=== PATIENT | female | born 1930 | race Caucasian/White ===

== ENCOUNTER 2017-06-24 11:21 | Inpatient (IN) | payer MEDICARE, OTHER ==
--- NOTE | ~2017-06-24 | CN ---
PATIENT NAME:MARCI ALVARENGA MEDICAL RECORD: [id number] : [birth year] LOCATION:D.M2 D.2117 ADMIT DATE: 06/24/17 ACCOUNT: [id number] CONSULTING PHYSICIAN: ROLAND BEAULIEU MD REFERRING PHYSICIAN: KENNETH MARTINEZ MD DATE OF CONSULTATION: 06/24/2017 Cardiology Consult DATE OF SERVICE: 06/24/2017 ADMITTING DIAGNOSES: 1. New onset atrial fibrillation, unknown duration. 2. Cardiomyopathy, ejection fraction 35%. 3. Hypertension. 4. Hyperlipidemia. HISTORY OF PRESENT ILLNESS: Mrs. Alvarenga presents with shortness of breath for over 1 week. She was found to be in atrial fibrillation. She has not had a history of atrial fibrillation in the past. She does have a history of cardiomyopathy, ejection fraction in the 35% range. She is treated with lisinopril and carvedilol for this and has done well until now. She does not feel her heart irregular, does not know how long she has been in atrial fibrillation. PHYSICAL EXAMINATION: GENERAL APPEARANCE: Well-nourished, well-developed, appears stated age. Level of distress, comfortable. PSYCHIATRIC: Mental status, alert, normal affect. Orientation, oriented to time, place and person. EYES: Lids and conjunctiva, noninjected. No discharge, no pallor. ENT: Lips, teeth, gums, normal dentition. Oropharynx, no cyanosis, no pallor. NECK: Carotid arteries, bilateral normal upstroke, no bruits, no thrills. JUGULAR VEINS: No jugular venous pressure or distention. CERVICAL LYMPH NODES: Nontender, nonenlarged. THYROID: Not enlarged. Nontender. No nodules. LUNGS: Respiratory effort, unlabored. CHEST: Normal curvature. No thoracic deformity. No chest wall tenderness. Percussion, resonant. Auscultation, clear. No wheezes, no rales, no rhonchi. CARDIOVASCULAR: Precordial exam, nondisplaced. No heaves or pericardial thrills. Rate and rhythm, regular. Heart sounds, normal S1, normal S2. No S3, no gallop, no rub. Systolic murmur, not heard. Diastolic murmur, not heard. EXTREMITIES: No cyanosis, no edema. Peripheral pulses, full and equal in all extremities, except as noted. No bruits appreciated. ABDOMEN: Soft, nondistended. Normal aorta. No bruit. Nontender. No masses. Liver, nontender, no hepatomegaly. Spleen, nontender, no splenomegaly. MUSCULOSKELETAL: No joint tenderness. No joint swelling. No erythema. NEUROLOGICAL: Normal gait, normal strength, normal tone. SKIN: Warm and dry. OVERALL IMPRESSION: At this time, we will start anticoagulation with Xarelto and discontinue her carvedilol, place her on sotalol, give her IV Lasix to clear the fluid overload symptomatology. She needs to be on anticoagulation for at least 3 weeks before DC cardioversion. At this time, we will plan for her to be in the hospital only for the next few days and we will see her as an outpatient CONSULT REPORT [id number] MARCI ALVARENGA afterwards after the anticoagulation for the above-mentioned timeframe, if she does not pharmacologically convert, we will plan for DC cardioversion at that time. TRANSINT:[id number] Voice Confirmation ID: [id number] DOCUMENT ID: [id number] ROLAND BEAULIEU MD at 1759 CC: [id number] DICTATION DATE: 06/24/17 1308 INSURANCE ATTORNEY: 06/24/17 1334 DIS IN 06/25/17 [place] [id number] [place] [id number]
--- NOTE | ~2017-06-24 | HP ---
PATIENT: MARCI ALVARENGA MEDICAL RECORD: [id number] ACCOUNT: [id number] LOCATION:D. D.2117 : [birth year] ADMISSION DATE: 06/24/17 HISTORY AND PHYSICAL EXAMINATION REASON FOR ADMISSION: Shortness of breath. HISTORY OF PRESENT ILLNESS: The patient is an 86-year-old female with remote history of idiopathic cardiomyopathy. Her last echo showed an ejection fraction of approximately 40%. She states that she had felt well until approximately a week ago, she developed onset of a dry cough and gradually increasing shortness of breath. Initially, the shortness of breath was worse with walking and now is at rest. Last night, she became concerned because she had more trouble lying down to breathe. She denies any chest pain or peripheral edema. She came to the office for these reasons and despite a saturation of 95% on room air, chest x-ray showed interstitial edema and new-onset atrial fibrillation. She is now being admitted for heart rate control, diuresis and cardiology consult. 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 SURGICAL HISTORY: Cystourethroscopy with bladder biopsy, heart catheterization, laparoscopic cholecystectomy in 2017. ALLERGIES: CODEINE, LASIX AND PENICILLIN. FAMILY HISTORY: Father of cancer. Mother had heart disease. SOCIAL HISTORY: Remote smoker years ago, never used smokeless tobacco, does not drink alcohol. She is , [place] HOME MEDICATIONS: She takes multiple vitamins as well as glucosamine chondroitin, pravastatin 40 mg at bedtime, aspirin 325 mg a day, lisinopril 20 mg b.i.d., famotidine 20 mg at bedtime, Coreg 12.5 mg b.i.d. REVIEW OF SYSTEMS: CONSTITUTIONAL: She has been fatigued for the last week without fever. HEENT: No recent new visual change, sinus congestion, or sore throat. RESPIRATORY: Exertional shortness of breath with dry cough. No sputum production or hemoptysis. CARDIAC: No exertional chest pain, claudication, edema or palpitations. GASTROINTESTINAL: No nausea, vomiting, change in stools or blood per rectum. GENITOURINARY: Has mild stress incontinence. No recent hematuria. GYNECOLOGIC: No vaginal bleeding. ENDOCRINE: Denies polyuria, polydipsia, heat or cold intolerance. NEUROLOGIC: No history of stroke, TIA, vascular headaches or seizures. INTEGUMENT: No rash or itching. PSYCHIATRIC: Denies depressed mood. PHYSICAL EXAMINATION: VITAL SIGNS: Temperature 97.7 Fahrenheit, pulse 90 and irregular, respirations HISTORY AND PHYSICAL [id number] MARCI ALVARENGA are 20, blood pressure 189/96, O2 saturation 95% on room air. HEENT: Eyes are clear. Oropharynx unremarkable. NECK: No bruits or masses. CHEST: Crackles bibasilarly, left greater than right. No wheezes. HEART: Irregular rate without gallop. ABDOMEN: Soft, nontender. BREASTS: Not examined. PELVIC: Deferred. EXTREMITIES: A 1+ mild pedal edema and trace pretibial edema of the knees bilaterally. SKIN: Unremarkable. LABORATORY DATA: White count of 9400, H&H of 12.8 and 38.3, platelet count 237,000. Chemistry is currently pending. ProBNP is pending. T4 is 6.9. Chest x-ray shows interstitial changes suggestive of underlying emphysema and superimposed atelectasis and/or pneumonia cannot be excluded. EKG shows atrial fibrillation with left bundle branch block, which is new. ASSESSMENT: 1. New-onset atrial fibrillation. 2. Left bundle branch block. 3. Congestive heart failure. 4. History of cardiomyopathy, idiopathic. 5. Hypertension. 6 Transitional cell carcinoma of the bladder. 7. Osteoarthritis. 8. Hyperlipidemia. 9. Gastroesophageal reflux disease. PLAN: The patient will be admitted for echocardiogram. IV Lasix. Cardiology consult. Will need to anticoagulate with Xarelto. Further workup pending clinical course. TRANSINT:[id number] Voice Confirmation ID: [id number] DOCUMENT ID: [id number] KENNETH MARTINEZ MD at 2131 CC: [id number] DICTATION DATE: 06/24/17 1354 CREATIVE DEVELOPER: 06/24/17 1432 DIS IN 06/25/17 [facility] [address] [place] [address]
--- NOTE | ~2017-06-24 | EC ---
PATIENT:MARCI ALVARENGA DATE OF SERVICE: 06/24/17 SEX: F MEDICAL RECORD: [id number] DATE OF : [birth year] LOCATION:D.M2 D.211 AGE OF PATIENT: 86 ADMISSION DATE: 06/24/17 REFERRING PHYSICIAN: INTERPRETING PHYSICIAN: ROLAND CASILLAS MD ECHOCARDIOGRAM REPORT ECHO CHARGES 4 ECHO COMPLETE CLINICAL DIAGNOSIS: A-FIB ECHOCARDIOGRAPHIC MEASUREMENTS (adult normal given) AC root (d.<3.7cm) 3.0 cm LV Septum d (<1.2 cm> 1.2 cm Valve Excursion 1.8 cm LV Septum (systole) 2.0 cm Left Atria (s.<4.0cm> 4.5 cm LVPW d(<1.2cm) 1.6 cm RV (d.<2.3cm) 3.0 cm LVPW (sytole) 2.3 cm LV diastole(<5.6CM) 4.5 cm MV E-F(>70mm/sec) cm LV systole 2.3 cm LVOT Diameter 1.6 cm MV exc.(>10mm) cm Est.ejection fraction (50-75%) % Pericardial Effusion N DOPPLER: LVIT cm/sec A cm/sec E 131 cm/sec LA cm/sec RVSP 59.0 mmHg LVOT 89.0 cm/sec AOP1/2T m/s Asc. Ao 181 cm/sec RVOT 67.0 cm/sec RA cm/sec PA 120 cm/sec AV Gradient Peak 13.1 mmHg AV Mean 6.4 mmHg AV Area 0.9 cm MV Gradient Peak 8.2 mmHg MV Mean 2.8 mmHg MV Area cm COMMENTS: Deputy K 9: Tahira CHURCHILLOE Curriculum Development Coordinator: 1 Dr. Casillas TAPE# PACS DATE OF SERVICE: 06/24/2017 Echocardiogram FINDINGS: 1. Left ventricular chamber size is within normal limits. Left ventricular systolic function is mildly reduced, ejection fraction 40%. This is an improvement over previous measure and she has had in the 30% to 35% range. 2. Left atrium is enlarged at 4.5 cm. Right atrium and right ventricular chamber sizes are within normal limits. ECHOCARDIOGRAM REPORT [id number] MARCI ALVARENGA 3. Valvular structures have normal structure and motion. 4. Doppler interrogation reveals moderate mitral regurgitation, moderate tricuspid regurgitation, no other valvular insufficiency or stenosis. Pulmonary systolic pressure is elevated estimated at 59 mmHg. 5. No evidence of pericardial effusion or left ventricular thrombus. TRANSINT:[id number] Voice Confirmation ID: [id number] DOCUMENT ID: [id number] ROLAND CASILLAS MD at 1757 CC: KENNETH MARTINEZ [id number] DICTATION DATE: 06/24/17 1349 GARBAGE COLLECTOR SUPERVISOR: 06/24/17 1427 DIS IN 06/25/17 [place] [id number] [place] [id number]
[2017-06-24] MEDS ORDERED: PRINIVIL20 MG PO (12:45)
[2017-06-24] MEDS ORDERED: PRAVACHOL40 MG PO (12:45)
[2017-06-24] MEDS ORDERED: COREG12.5 MG PO (12:45)
[2017-06-24] MEDS ORDERED: ASPIRIN325 MG PO (12:46)
[2017-06-24] MEDS ORDERED: PEPCID20 MG PO (12:46)
[2017-06-24] MEDS ORDERED: MULTIPLE VITAMI1 TA1 PO (12:46)
[2017-06-24] MEDS ORDERED: GLUCOSAMINE & C1 CAP PO (12:47)
[2017-06-24] MEDS ORDERED: CALCIUM 600+D T1 TA1 PO (12:47)
[2017-06-24] MEDS ORDERED: ACIDOPHILUS LAC1 CAP PO (12:48)
[2017-06-24] MEDS ORDERED: GALZIN50 MG PO (12:49)
[2017-06-24] MEDS ORDERED: FISH OIL 1,0001 CA1 PO (12:50)
[2017-06-24] MEDS ORDERED: ACETAMINOPHEN325 MG PO (12:51)
[2017-06-24 13:06] VITALS: BP 189/96; BMI 29.9
[2017-06-24 13:23] LABS: BASOPHILS 0.4 % (0-2); EOSINOPHILS 7.2 % (0-7); HEMATOCRIT 38.3 % (36.0-48.0); HEMOGLOBIN 12.8 g/dL (12-16); IMMATURE GRANULOCYTES 0.1 % (0-5); LYMPHOCYTES 22.5 % (15-50); MCHC 33.4 g/dL (31.0-37.0); MCV 95.8 fL (80.0-100.0); MONOCYTES 6.2 % (2-11); NEUTROPHILS 63.6 % (40-80); PLATELET COUNT 237 10x3/uL (130-400); RDW 13.9 % (11.5-14.5); WBC 9.4 10x3/uL (4.8-10.8)
[2017-06-24 13:47] LABS: T4 THYROXINE 6.9 ug/dL (4.7-13.3); THYROID STIMULATING HORMONE 1.72 uIU/mL (0.36-3.74)
[2017-06-24 14:25] LABS: ALBUMIN 3.9 g/dL (3.4-5.0); ALKALINE PHOSPHATASE 60 U/L (46-116); ALT (SGPT) 51 U/L (10-68); BILIRUBIN - TOTAL 1.39 mg/dL (0.2-1.3); CALC OSMOLALITY 287 mosm/kg (275-300); CALCIUM 9.4 mg/dL (8.5-10.1); CARBON DIOXIDE 28.7 mmol/L (21.0-32.0); CHLORIDE - SERUM 103 mmol/L (98-107); CKMB 1.5 U/L (0.0-3.6); CREATINE KINASE 91 UL (21-215); GLUCOSE 129 mg/dL (74-106); POTASSIUM - SERUM 4.1 mmol/L (3.5-5.1); PRO BNP 3435 pg/mL (0-450); PROTEIN - SERUM 6.8 g/dL (6.4-8.2); SODIUM 142 mmol/L (136-145); TROPONIN-I 0.024 ng/mL (0.000-0.060); UREA NITROGEN 20 mg/dL (7-18); eGFR NON AFRICAN AMERICAN 55 mL/min (90-120)
[2017-06-24 15:35] VITALS: BP 129/63
[2017-06-24 21:10] VITALS: BP 159/82
[2017-06-25 02:43] VITALS: BP 138/64
[2017-06-25 05:09] LABS: ANION GAP 11.3 mmol/L (8-16); CALCIUM 9.2 mg/dL (8.5-10.1); CARBON DIOXIDE 32.3 mmol/L (21.0-32.0); CREATININE - SERUM 1.1 mg/dL (0.6-1.3); POTASSIUM - SERUM 3.6 mmol/L (3.5-5.1)
[2017-06-25 09:02] VITALS: BP 155/72
[2017-06-25] MEDS ORDERED: XARELTO20 MG PO (11:05)
[2017-06-25] MEDS ORDERED: BETAPACE 80 MG80 MG PO (11:06)
[2017-06-25] MEDS ORDERED: FUROSEMIDE20 MG PO (11:07)
[2017-06-25] MEDS ORDERED: K-DUR20 MEQ PO (11:08)
[2017-06-25 11:13] VITALS: BP 150/70
== END 2017-06-25 11:31 | disposition home or self-care (01) | DRG 309 ==
LOC: D.SDCHOLD 11:21 → D.M2 11:21
PROVIDERS: Family Medicine
DX: I48.91 Unspecified atrial fibrillation (principal); I50.22 Chronic systolic (congestive) heart failure; Z79.01 Long term (current) use of anticoagulants; I11.0 Hypertensive heart disease with heart failure; I25.10 Atherosclerotic heart disease of native coronary artery without angina pectoris; M81.0 Age-related osteoporosis without current pathological fracture; I42.9 Cardiomyopathy, unspecified; E78.5 Hyperlipidemia, unspecified; K21.9 Gastro-esophageal reflux disease without esophagitis; Z87.891 Personal history of nicotine dependence; I44.7 Left bundle-branch block, unspecified

== ENCOUNTER 2018-01-27 13:45 | Emergency (ER) | payer MEDICARE, OTHER ==
[~2018-01-27] VITALS: Ht 162.6 cm; Wt 79.5 kg
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
[~2018-01-27 13:45] MED LIST: ACETAMINOPHEN325 MG PO; ACIDOPHILUS LAC1 CAP PO; ASPIRIN325 MG PO; BETAPACE 80 MG80 MG PO; CALCIUM 600+D T1 TA1 PO; COREG12.5 MG PO; FISH OIL 1,0001 CA1 PO; FUROSEMIDE20 MG PO; GALZIN50 MG PO; GLUCOSAMINE & C1 CAP PO; K-DUR20 MEQ PO; MULTIPLE VITAMI1 TA1 PO; PEPCID20 MG PO; PRAVACHOL40 MG PO; PRINIVIL20 MG PO; XARELTO20 MG PO
[2018-01-27 13:48] VITALS: Ht 162.6 cm; Wt 79.5 kg
[2018-01-27 14:46] LABS: HEMATOCRIT 40.1 % (36.0-48.0); HEMOGLOBIN 14.1 g/dL (12-16); MCH 32.6 pg (26.0-34.0); MCHC 35.2 g/dL (31.0-37.0); MCV 92.8 fL (80.0-100.0); MEAN PLATELET VOLUME 9.6 fL (7.4-10.4); PLATELET COUNT 286 10x3/uL (130-400); RBC 4.32 10x6/uL (4.00-5.40); RDW 13.2 % (11.5-14.5); WBC 23.1 10x3/uL (4.8-10.8)
[2018-01-27 15:04] LABS: ALKALINE PHOSPHATASE 54 U/L (46-116); ALT (SGPT) 25 U/L (10-68); BILIRUBIN - TOTAL 0.84 mg/dL (0.2-1.3); CALC OSMOLALITY 274 mosm/kg (275-300); CALCIUM 9.5 mg/dL (8.5-10.1); CARBON DIOXIDE 27.5 mmol/L (21.0-32.0); CHLORIDE - SERUM 99 mmol/L (98-107); CREATININE - SERUM 1.2 mg/dL (0.6-1.3); GLUCOSE 108 mg/dL (74-106); POTASSIUM - SERUM 4.5 mmol/L (3.5-5.1); PROTEIN - SERUM 7.7 g/dL (6.4-8.2); SODIUM 134 mmol/L (136-145); UREA NITROGEN 28 mg/dL (7-18); eGFR NON AFRICAN AMERICAN 45 mL/min (90-120)
[2018-01-27 15:10] LABS: PRO BNP 952 pg/mL (0-450)
[2018-01-27 15:19] LABS: TROPONIN-I < 0.017 ng/mL (0.000-0.060)
[2018-01-27 15:52] LABS: LYMPHOCYTES 8 % (15-50); NEUTROPHILS 92 % (40-80); PLATELET ESTIMATE NORMAL
[2018-01-27 16:59] VITALS: BP 197/106
== END 2018-01-27 17:32 | disposition other institution (70) ==
LOC: D.ER 13:45
PROVIDERS: Family Medicine
DX: S22.20XA Unspecified fracture of sternum, initial encounter for closed fracture (principal); V43.52XA Car driver injured in collision with other type car in traffic accident, initial encounter; Y93.89 Activity, other specified; Y92.410 Unspecified street and highway as the place of occurrence of the external cause; R06.02 Shortness of breath; Z86.73 Personal history of transient ischemic attack (TIA), and cerebral infarction without residual deficits; I10 Essential (primary) hypertension; I48.91 Unspecified atrial fibrillation

== ENCOUNTER 2018-04-22 08:06 | Emergency (ER) | payer MEDICARE, OTHER ==
[~2018-04-22] VITALS: Ht 162.6 cm; Wt 77.3 kg
[2018-04-22 08:08] VITALS: Ht 162.6 cm; Wt 77.3 kg
[2018-04-22 08:34] LABS: BASOPHILS 0.5 % (0-2); EOSINOPHILS 7.3 % (0-7); IMMATURE GRANULOCYTES 0.3 % (0-5); LYMPHOCYTES 23.3 % (15-50); MCH 32.6 pg (26.0-34.0); MCHC 34.9 g/dL (31.0-37.0); MCV 93.5 fL (80.0-100.0); MEAN PLATELET VOLUME 9.7 fL (7.4-10.4); MONOCYTES 6.9 % (2-11); NEUTROPHILS 61.7 % (40-80); PLATELET COUNT 322 10x3/uL (130-400); RDW 13.4 % (11.5-14.5); WBC 13.7 10x3/uL (4.8-10.8)
[2018-04-22 08:48] LABS: APPEARANCE CLEAR (CLEAR); BILIRUBIN NEGATIVE (NEGATIVE); COLOR YELLOW (YELLOW); GLUCOSE NEGATIVE (NEGATIVE); KETONE NEGATIVE (NEGATIVE); NITRITE NEGATIVE (NEGATIVE); PROTEIN NEGATIVE (NEGATIVE); SPECIFIC GRAVITY 1.015 (1.005-1.020); UROBILINOGEN NORMAL (NORMAL)
[2018-04-22 08:50] LABS: ALBUMIN 3.8 g/dL (3.4-5.0); ALKALINE PHOSPHATASE 66 U/L (46-116); ALT (SGPT) 20 U/L (10-68); BILIRUBIN - TOTAL 0.76 mg/dL (0.2-1.3); CALC OSMOLALITY 273 mosm/kg (275-300); CALCIUM 10.2 mg/dL (8.5-10.1); CHLORIDE - SERUM 99 mmol/L (98-107); GLUCOSE 101 mg/dL (74-106); POTASSIUM - SERUM 4.4 mmol/L (3.5-5.1); PROTEIN - SERUM 7.9 g/dL (6.4-8.2); SODIUM 135 mmol/L (136-145); UREA NITROGEN 23 mg/dL (7-18); eGFR NON AFRICAN AMERICAN 55 mL/min (90-120)
[2018-04-22 08:50] LABS: BACTERIA FEW /hpf (NONE SEEN); EPITHELIAL CELLS 0-5 /hpf (0-5); RED CELLS - URINE 0-5 /hpf (0-5); WHITE CELLS - URINE 0-5 /hpf (0-5)
[2018-04-22 08:57] LABS: TROPONIN-I < 0.017 ng/mL (0.000-0.060)
[2018-04-22 09:49] LABS: MAGNESIUM - SERUM 1.7 mg/dL (1.8-2.4)
[2018-04-22] MEDS ORDERED: FUROSEMIDE20 MG PO (10:23)
[2018-04-22 10:47] VITALS: BP 183/93
== END 2018-04-22 10:47 | disposition home or self-care (01) ==
LOC: D.ER 08:06
PROVIDERS: Emergency Medicine
DX: R06.00 Dyspnea, unspecified (principal); I11.0 Hypertensive heart disease with heart failure; I50.9 Heart failure, unspecified; R05 Cough

== ENCOUNTER → 2019-03-08 10:02 | Outpatient (CLI) | payer MEDICARE, OTHER ==
[2018-04-22 08:08] VITALS: BMI 29.2
--- NOTE | 2019-03-12 13:29 | EC ---
PATIENT:MARCI ALVARENGA DATE OF SERVICE: 03/08/19 SEX: F MEDICAL RECORD: [id number] DATE OF : [birth year] LOCATION:D.[facility] AGE OF PATIENT: 88 ADMISSION DATE: 03/08/19 REFERRING PHYSICIAN: INTERPRETING PHYSICIAN: BRIANNE AGUIRRE MD ECHOCARDIOGRAM REPORT ECHO CHARGES 4 ECHO COMPLETE Date: 03/08/19 CLINICAL DIAGNOSIS: AFIB HX CARDIOMYOPATHY,HTN, MR/TR ECHOCARDIOGRAPHIC MEASUREMENTS (adult normal given) AC root (d.<3.7cm) 3.2 cm LV Septum d (<1.2 cm> 1.2 cm Valve Excursion 1.6 cm LV Septum (systole) 1.45 cm Left Atria (s.<4.0cm> 4.0 cm LVPW d(<1.2cm) 1.7 cm RV (d.<2.3cm) 2.7 cm LVPW (sytole) 2.0 cm LV diastole(<5.6CM) 5.4 cm MV E-F(>70mm/sec) cm LV systole 4.5 cm LVOT Diameter 1.5 cm MV exc.(>10mm) 1.3 cm Est.ejection fraction (50-75%) % DOPPLER: LVIT cm/sec A 92.0 cm/sec E 68.0 cm/sec LA cm/sec RVSP 34 mmHg LVOT 113 cm/sec AOP1/2T m/s Asc. Ao 146 cm/sec RVOT 82 cm/sec RA cm/sec PA 108 cm/sec AV Gradient Peak 8.57 mmHg AV Mean 4.72 mmHg AV Area 1.3 cm MV Gradient Peak 3.22 mmHg MV Mean 1.50 mmHg MV Area cm COMMENTS: Radar Operator: 2 MARTINEZ MONROE Disease Case Manager Rn: 3 Dr. Linares TAPE# PACS Pericardial Effusion N DATE OF SERVICE: Adequate 2D, color flow, spectral Doppler, and M-mode. LVH is present. LV internal dimensions are normal. LV is globally hypokinetic with reduced EF, estimated EF at 40% to 45%. Aortic valve is sclerosis without evidence of stenosis by Doppler interrogation. Left atrium is upper limits of normal at 4.0 cm. Mitral valve shows no prolapse. Mild MR. Right-sided chambers grossly normal. Trace TR. TRANSINT:[id number] Voice Confirmation ID: [id number] DOCUMENT ID: [id number] ECHOCARDIOGRAM REPORT [id number] MARCI ALVARENGA,BRIANNE Davidson MD at 1329 CC: [id number] DICTATION DATE: 03/08/19 1356 GASOLINE SERVICE ATTENDANT: 03/08/19 1427 DEP CLI 03/08/19 [place] [id number] [place] [id number]
== END | disposition home or self-care (01) ==
LOC: D.HCCECHO 10:02
PROVIDERS: ATTEND Internal Medicine Interventional Cardiology
DX: I48.91 Unspecified atrial fibrillation (principal)